=== PATIENT | male | born 1960 | race African-American/Black ===

== ENCOUNTER 2020-01-07 20:39 | Inpatient (IN) | payer OTHER ==
[~2020-01-07] VITALS: Ht 172.7 cm; Wt 100.2 kg
[2020-01-07 23:24] LABS: BASOPHILS % 0.6 % (0.0-2.0); EOSINOPHILS % 1.8 % (0.0-5.0); HEMATOCRIT. 37.7 % (42.0-52.0); HEMOGLOBIN. 12.3 g/dL (14.0-18.0); LYMPHOCYTES % 26.8 % (20.0-50.0); MEAN CORPUSCULAR HEMOGLOBIN 27.9 pg (28.0-32.0); MEAN CORPUSCULAR VOLUME 85.5 fL (80.0-94.0); MEAN PLATELET VOLUME 8.6 fl (7.4-10.4); MONOCYTES % 9.3 % (2.0-8.0); NEUTROPHILS % 61.5 % (40.0-76.0); PLATELET 162 x1000/uL (130-400); RED BLOOD CELL COUNT 4.41 mill/uL (4.7-6.1); RED CELL DISTRIBUTION WIDTH 15.8 % (11.6-14.6)
[2020-01-07 23:25] LABS: CLARITY URINE CLEAR (CLEAR); COLOR URINE YELLOW (YELLOW); KETONES URINE 1+ (NEGATIVE); LEUKOCYTE ESTERASE URINE NEGATIVE (NEGATIVE); NITRITE URINE NEGATIVE (NEGATIVE); OCCULT BLOOD URINE 1+ (NEGATIVE); PROTEIN URINE NEGATIVE (NEGATIVE); SPECIFIC GRAVITY URINE 1.018 (1.005-1.030)
[2020-01-07 23:30] LABS: CHLORIDE 106 mEq/L (98-107)
[2020-01-07 23:34] LABS: ETHANOL BLOOD < 10 mg/dL
[2020-01-07 23:40] LABS: *AMPHETAMINES SCREEN URINE PRESUMTIVE POSITIVE (NEGATIVE); *BARBITURATES SCREEN URINE NEGATIVE (NEGATIVE); *BENZODIAZEPINES SCREEN URINE NEGATIVE (NEGATIVE); *COCAINE SCREEN URINE PRESUMTIVE POSITIVE (NEGATIVE)
[2020-01-07 23:41] LABS: CANNABINOID URINE SCREEN NEGATIVE (NEGATIVE); METHADONE URINE SCREEN NEGATIVE (NEGATIVE); OPIATES URINE SCREEN NEGATIVE (NEGATIVE); PHENCYCLIDINE URINE SCREEN NEGATIVE (NEGATIVE)
[2020-01-07] MEDS ORDERED: SODIUM CHLORIDE 0.9% 1,000 ML IV ONE (23:58)
[2020-01-07] MEDS ORDERED: ONDANSETRON HCL 4MG/2ML INJ IV STA (23:58)
[2020-01-08] MEDS ORDERED: LORAZEPAM 2MG/ML CPJ IV ONE ×2 (00:30→03:00)
[2020-01-08 00:50] LABS: CREATINE KINASE 1704 IU/L (39-308)
[2020-01-08] MEDS ORDERED: SODIUM CHLORIDE 0.9% 1,000 ML IV ONE (00:58)
[2020-01-08] MEDS ORDERED: IOHEXOL-300 100 ML BOTTLE ONE (04:34)
[2020-01-08] MEDS ORDERED: ONDANSETRON HCL 4MG/2ML INJ IV PRN (08:30)
[2020-01-08] MEDS ORDERED: ACETAMINOPHEN 325MG TABLET PO PRN (08:30)
[2020-01-08] MEDS ORDERED: LORAZEPAM 2MG/ML CPJ IV PRN (08:30)
[2020-01-08] MEDS: DEXT 5%/0.45% NACL 1000ML 1,000 ML IV SCH (08:30)
[2020-01-08 14:20] VITALS: BP 132/91
[2020-01-08] MEDS ORDERED: HALOPERIDOL LACTATE 5MG/ML VIAL IM PRN (15:45)
[2020-01-08 19:51] VITALS: BP 118/87
[2020-01-09] VITALS: BP 120/82
[2020-01-09 04:00] VITALS: BP 122/79
[2020-01-09] MEDS: DEXT 5%/0.45% NACL 1000ML 1,000 ML IV SCH (04:17)
[2020-01-09 06:52] LABS: CREATINE KINASE 346 IU/L (39-308)
[2020-01-09 08:00] VITALS: BP 144/84
[2020-01-09 12:00] VITALS: BP 136/76
[2020-01-09 16:00] VITALS: BP 141/85
[2020-01-09 20:21] VITALS: BP 110/72
[2020-01-10] VITALS: BP 131/84
[2020-01-10] MEDS: DEXT 5%/0.45% NACL 1000ML 1,000 ML IV SCH (00:30)
[2020-01-10 04:00] VITALS: BP 121/68
[2020-01-10 08:00] VITALS: BP 121/82
[2020-01-10 12:00] VITALS: BP 124/82
[2020-01-10 16:00] VITALS: BP 119/84
[2020-01-10 20:00] VITALS: BP 123/81
[2020-01-11] VITALS: BP 119/81
[2020-01-11 04:00] VITALS: BP 119/83
[2020-01-11 08:00] VITALS: BP 125/85
[2020-01-11 09:09] LABS: % CD 3 POS. LYMPHOCYTES 81.7 % (57.5-86.2); % CD 4 POS. LYMPHOCYTES 27.4 % (30.8-58.5); % CD 8 POS. LYMPH 52.8 % (12.0-35.5); ABSOLUTE CD 3 1471 /uL (622-2402); ABSOLUTE CD 4 HELPER 493 /uL (359-1519); ABSOLUTE CD 8 SUPPRESSOR 950 /uL (109-897); ABSOLUTE EOSINOPHILS 0.2 x10E3/uL (0.0-0.4); ABSOLUTE LYMPHOCYTES 1.8 x10E3/uL (0.7-3.1); ABSOLUTE MONOCYTES 0.7 x10E3/uL (0.1-0.9); ABSOLUTE NEUTROPHILS 3.5 x10E3/uL (1.4-7.0); BASOPHILS 0 % (Not Estab.); CD4/CD8 RATIO 0.52 (0.92-3.72); HEMATOCRIT 40.1 % (37.5-51.0); IMMATURE GRANULOCYTES 0 % (Not Estab.); LYMPHOCYTES 29 % (Not Estab.); MEAN CORPUSCULAR HEMOGLOBIN 26.4 pg (26.6-33.0); MEAN CORPUSCULAR HGB CONC. 29.9 g/dL (31.5-35.7); MEAN CORPUSCULAR VOLUME 88 fL (79-97); MONOCYTES 11 % (Not Estab.); NEUTROPHILS 58 % (Not Estab.); PLATELETS 200 x10E3/uL (150-450); RBC 4.54 x10E6/uL (4.14-5.80); RED CELL DISTRIBUTION WIDTH 15.7 % (11.6-15.4); WBC 6.1 x10E3/uL (3.4-10.8)
[2020-01-11 12:00] VITALS: BP 107/80
[2020-01-11 16:00] VITALS: BP 96/76
[2020-01-11 20:00] VITALS: BP 112/76
[2020-01-12] VITALS: BP 111/75
[2020-01-12 04:00] VITALS: BP 125/71
[2020-01-12 08:00] VITALS: BP 116/83
[2020-01-12 09:03] VITALS: BP 116/63
[2020-01-12 10:07] VITALS: BP 116/75
[2020-01-12] MEDS: DEXT 5%/0.45% NACL 1000ML 1,000 ML IV SCH (11:31)
[2020-01-12 12:00] VITALS: BP 118/78
== END 2020-01-12 13:23 | disposition home or self-care (01) | DRG 816 ==
LOC: ER 20:39 → 6WST 01-08 03:24 → EDBD 01-08 03:24 → ENRESERV 01-08 13:32 → 6EST 01-10 00:24
PROVIDERS: ADMIT Internal Medicine; ATTEND Internal Medicine
DX: T40.5X1A Poisoning by cocaine, accidental (unintentional), initial encounter (principal); G92 Toxic encephalopathy; M62.82 Rhabdomyolysis; E44.1 Mild protein-calorie malnutrition; E87.1 Hypo-osmolality and hyponatremia; D64.9 Anemia, unspecified; S42.032A Displaced fracture of lateral end of left clavicle, initial encounter for closed fracture; K57.90 Diverticulosis of intestine, part unspecified, without perforation or abscess without bleeding; F14.10 Cocaine abuse, uncomplicated; Y92.89 Other specified places as the place of occurrence of the external cause; Z95.810 Presence of automatic (implantable) cardiac defibrillator; W18.39XA Other fall on same level, initial encounter; Y93.89 Activity, other specified; Y99.8 Other external cause status
CPT/HCPCS: 36415; 71045; 73000; 73030; 74177; 80053; 80305; 80320; 81003; 82140; 82550; 83605; 85025; 86359; 86360; 87015; 87045; 87427; 87493; 93005; 93306; 96374; 99285; A4565; J2060; J2405; J7030; Q9967; G0480